=== PATIENT | male | born 1945 | race Native Hawaiian/Other Pacific Islander ===

== ENCOUNTER 2016-05-05 10:28 | Emergency (ER) | payer OTHER ==
[~2016-05-05] VITALS: Ht 172.7 cm; Wt 79.4 kg
[2016-05-05] MEDS ORDERED: OMEPRAZOLE40 MG OR (10:41)
[2016-05-05] MEDS ORDERED: PROMSYP53 PO (10:43)
[2016-05-05] MEDS ORDERED: SIMV20TA2 PO (10:43)
[2016-05-05] MEDS ORDERED: CLOP75TA2 PO (10:44)
[2016-05-05] MEDS ORDERED: AMLO2.5T PO (10:44)
[2016-05-05] MEDS ORDERED: COZAAR100 MG PO (10:44)
[2016-05-05] MEDS ORDERED: BUPROPN HCL300 MG PO (10:45)
[2016-05-05] MEDS ORDERED: METFTAB PO (10:45)
[2016-05-05] MEDS ORDERED: CARV12.5 PO (10:46)
[2016-05-05 12:06] LABS: PLATELET COUNT 259 K/uL (142-355)
[2016-05-05 12:13] LABS: POTASSIUM 4.5 mmol/L (3.6-5.2)
[2016-05-05] MEDS ORDERED: PROM25TA52 PO (13:32)
== END 2016-05-05 13:51 | disposition home or self-care (01) ==
LOC: ED 10:28
PROVIDERS: Specialist
DX: R11.10 Vomiting, unspecified (principal); E11.65 Type 2 diabetes mellitus with hyperglycemia
CPT/HCPCS: 80053; 81000; 81002; 82150; 83605; 83690; 83735; 84100; 85027; 85651; 96361; 96374; 96375; 99284; J1815; J2405

== ENCOUNTER 2016-08-31 14:51 | Outpatient (CLI) | payer OTHER ==
[~2016-08-31 14:51] MED LIST: AMLO2.5T PO; BUPROPN HCL300 MG PO; CARV12.5 PO; CLOP75TA2 PO; COZAAR100 MG PO; METFTAB PO; OMEPRAZOLE40 MG OR; PROM25TA52 PO; PROMSYP53 PO; SIMV20TA2 PO
== END 2016-08-31 17:57 | disposition home or self-care (01) ==
LOC: CT 14:51
DX: Z85.118 Personal history of other malignant neoplasm of bronchus and lung (principal)

== ENCOUNTER 2017-12-04 09:32 | Outpatient (CLI) | payer OTHER | END 2017-12-04 22:39 | disposition home or self-care (01) | LOC: CT 09:32 | DX: Z85.118 Personal history of other malignant neoplasm of bronchus and lung (principal) ==

== ENCOUNTER 2018-03-08 09:47 | Inpatient (IN) | payer OTHER ==
[~2018-03-08] VITALS: Ht 172.7 cm; Wt 82.7 kg
[2018-03-08 11:54] LABS: PLATELET COUNT 225 K/uL (142-355)
[2018-03-08 12:03] LABS: POTASSIUM 4.4 mmol/L (3.6-5.2)
[2018-03-08 12:35] VITALS: BP 109/58; TEMP 97.5; Ht 172.7 cm; Wt 82.7 kg
[2018-03-08] MEDS ORDERED: GLIM4TAB PO (14:54)
[2018-03-08] MEDS ORDERED: TAMS0.4C PO (14:55)
[2018-03-08] MEDS ORDERED: CLIN300C PO (14:56)
[2018-03-08] MEDS ORDERED: ALPR0.5T24 PO (14:58)
[2018-03-08] MEDS ORDERED: BRILINTA90 MG PO (14:59)
[2018-03-08] MEDS ORDERED: NITROSTAT0.4 MG SL (15:01)
[2018-03-08 16:05] VITALS: BP 122/67; TEMP 97.9
[2018-03-08 19:58] VITALS: BP 120/60; TEMP 100.3
[2018-03-09] VITALS: BP 95/54; TEMP 98.8
[2018-03-09 04:00] VITALS: BP 86/57; TEMP 97.6
[2018-03-09 07:16] LABS: PLATELET COUNT 151 K/uL (142-355)
[2018-03-09 07:40] LABS: POTASSIUM 5.2 mmol/L (3.6-5.2)
[2018-03-09 08:10] VITALS: BP 125/65; TEMP 98.2
[2018-03-09 12:22] VITALS: BP 136/77; TEMP 98.6
== END 2018-03-09 12:45 | disposition short-term general hospital (02) | DRG 641 ==
LOC: MED/SURG 09:47
PROVIDERS: ADMIT Nurse Practitioner
DX: E86.0 Dehydration (principal); N18.4 Chronic kidney disease, stage 4 (severe); N17.9 Acute kidney failure, unspecified; E78.49 Other hyperlipidemia; Z85.118 Personal history of other malignant neoplasm of bronchus and lung; K21.9 Gastro-esophageal reflux disease without esophagitis; R07.89 Other chest pain; I25.10 Atherosclerotic heart disease of native coronary artery without angina pectoris; E11.22 Type 2 diabetes mellitus with diabetic chronic kidney disease; I12.9 Hypertensive chronic kidney disease with stage 1 through stage 4 chronic kidney disease, or unspecified chronic kidney disease; K52.89 Other specified noninfective gastroenteritis and colitis; R79.89 Other specified abnormal findings of blood chemistry; R74.8 Abnormal levels of other serum enzymes; M62.81 Muscle weakness (generalized); R00.0 Tachycardia, unspecified
CPT/HCPCS: 80053; 81000; 82550; 82553; 83690; 83735; 84484; 85027; 87077; 87086; 87088; 87186; 93005; 94760

== ENCOUNTER 2018-03-09 12:58 | Outpatient (CLI) | payer OTHER ==
[~2018-03-09 12:58] MED LIST changes: +ALPR0.5T24 PO; +BRILINTA90 MG PO; +CLIN300C PO; +GLIM4TAB PO; +NITROSTAT0.4 MG SL; +TAMS0.4C PO
== END 2018-03-09 14:10 | disposition short-term general hospital (02) ==
LOC: AMB 12:58
DX: E86.0 Dehydration (principal); N18.4 Chronic kidney disease, stage 4 (severe); N17.9 Acute kidney failure, unspecified; E78.49 Other hyperlipidemia; Z85.118 Personal history of other malignant neoplasm of bronchus and lung; K21.9 Gastro-esophageal reflux disease without esophagitis; R07.89 Other chest pain; I25.10 Atherosclerotic heart disease of native coronary artery without angina pectoris; E11.22 Type 2 diabetes mellitus with diabetic chronic kidney disease; I12.9 Hypertensive chronic kidney disease with stage 1 through stage 4 chronic kidney disease, or unspecified chronic kidney disease; K52.89 Other specified noninfective gastroenteritis and colitis; R79.89 Other specified abnormal findings of blood chemistry; R74.8 Abnormal levels of other serum enzymes; M62.81 Muscle weakness (generalized); R00.0 Tachycardia, unspecified
CPT/HCPCS: A0425; A0427